=== PATIENT | male | born 1970 | race Caucasian/White ===

== ENCOUNTER 2016-09-11 17:06 | Emergency (ER) | payer SELFPAY ==
[2016-09-11 18:00] VITALS: BP 129/93
[2016-09-11] MEDS ORDERED: Take Home: Azithromycin 250 MG, 2 Tab Pack PO ONE (18:34)
--- NOTE | 2016-09-12 01:28 | ER ---
Date of Service: 09/11/2016 SUBJECTIVE: Kota presents to the emergency room with complaints of cough, body aches, and chest congestion. He is concerned as he has been working on renovating a trailer and came in contact with some black mold. He states that he has also been experiencing some myalgias, but denies any fever or chills. He states that he is also experiencing some mild sore throat and sinus congestion. PAST MEDICAL HISTORY: None. MEDICATIONS: None. ALLERGIES: NKDA. REVIEW OF SYSTEMS: Please see history of present illness. General: Denies any fever or chills. Does complain of mild generalized fatigue. HEENT: Complains of sore throat and congestion. Respiratory: Complains of mild cough. No significant respiratory distress or shortness of breath. Cardiac: Denies any substernal chest pain. No jaw, arm, neck, or back pain. GI: No nausea, vomiting, or diarrhea. No melena, hematochezia, or hematemesis. PHYSICAL EXAMINATION: General: This is a 45-year-old male patient, in no acute distress. Vital Signs: Blood pressure is 129/93, pulse rate is 100, temperature is 36.7, respiratory rate 12, O2 saturations 100%. Skin: Warm, pink, and dry. HEENT: Head is normocephalic, atraumatic. Eyes, PERRLA. Extraocular movements are intact. Ears, TMs are clear. Mouth, oral mucosa is moist. No erythema or exudate. No hypopharynx. Neck: Supple. No masses. There is no lymphadenopathy. Lungs: Clear to auscultation. Heart: Regular rate and rhythm. Abdomen: Soft and nontender. There is no hepatosplenomegaly noted. There is no masses noted. Extremities: Without edema. DIAGNOSTIC DATA: PA and lateral chest x-ray was obtained. It did have evidence of some increased hilar opacification consistent with bronchitis. Influenza A and B were obtained and were negative. WBCs are 6.9, hemoglobin is 14.4, platelets are 176. Rapid strep was performed and was negative. ASSESSMENT: Acute bronchitis. PLAN: The patient is started on azithromycin 500 mg x1 and 250 mg daily on days 2 through 5. Would like him to follow up in the clinic in the next 7-10 days, sooner if not gradually improving. All questions were answered. MWK: 09/11/2016 22:51:01 MODL: 09/12/2016 01:23:35 /[id number]
== END 2016-09-11 18:42 | disposition home or self-care (01) ==
LOC: VM.ED 17:06
DX: J20.9 Acute bronchitis, unspecified (principal)
CPT/HCPCS: 36415; 71020; 85025; 86140; 87081; 87804; 87880; 99283; A9270

== ENCOUNTER 2020-11-01 00:55 | Emergency (ER) | payer MEDICAID ==
[2020-11-01] MEDS ORDERED: Lidocaine 1% 30 ML SDV INJECT ONE (01:11)
[2020-11-01] MEDS ORDERED: Take Home: Acetaminophen/HYDROcodone 325-10 MG, 5 Tab Pack PO ONE (01:33)
[2020-11-01] MEDS ORDERED: Take Home: Amoxicillin 875 MG Tab, 2 Tab Pack PO ONE (01:33)
--- NOTE | 2020-11-01 01:54 | EDM.PDOC ---
ED HPI GENERAL MEDICAL PROBLEM - General Chief Complaint: Bite:Animal, Insect Stated Complaint: Dog bite Time Seen by Provider: 11/01/20 00:55 Source of Information: Reports: Patient History Limitations: Reports: No Limitations - History of Present Illness INITIAL COMMENTS - FREE TEXT/NARRATIVE: Pt. presents to ER with complaints of dog bite to R forearm. Pt. sustained a puncture wound to the volar portion of the R forearm and hematoma without skin break in the dorsal portion of the forearm. Pt. states that immediately after the bite, he noted significant hematoma formation to the area. His tetanus was updated in 2014. Pt. denies any numbness/tingling in the distal portion of the extremity. Denies any injury elsewhere. Onset: Today Location: Reports: Upper Extremity, Right Quality: Reports: Throbbing Severity: Severe - Related Data Allergies Allergy/AdvReac Type Severity Reaction Status Date / Time No Known Allergies Allergy Verified 09/11/16 17:24 Home Meds: Home Meds . [No Known Home Meds] 09/11/16 [History] Past Medical History - Past Health History Medical/Surgical History: Denies Medical/Surgical History ED ROS GENERAL - Review of Systems Review Of Systems: Comprehensive ROS is negative, except as noted in HPI. ED EXAM, GENERAL - Physical Exam Exam: See Below Exam Limited By: No Limitations General Appearance: Alert, WD/WN, No Apparent Distress Extremities: Other (approx. 1 cm puncture wound with surrounding devitilized tissue noted in volar portion of forearm. Hematoma noted surrounding the bite, particularly in the dorsal area. The hematomas are fluctuent. The skin is not taut. CMS intact. No paresthesia. Pt. complains of increased pain with flexion/extens) ED GENERAL MEDICAL PROCEDURES - Laceration/Wound Repair Right Arm Lac/wound length in cm: 1 Appearance: Subcutaneous, Muscle Distal NVT: Neuro & Vascular Intact, No Tendon Injury Anesthetic Type: Local Local Anesthesia - Lidocaine (Xylocaine): 1% Plain Local Anesthetic Volume: 5cc Skin Prep: Chlorhexidine (Hibiciens), Saline Saline irrigation (cc's): 1,000 Exploration/Debridement/Repair: Wound Explored, Extensive Debridement, Foreign Material Removed Closed with: Other (secondary intention) Course - Orders/Labs/Meds Meds: Medications Discontinued Medications Generic Name Dose Route Start Last Admin Trade Name Freq PRN Reason Stop Dose Admin Hydrocodone Bitart/Acetaminophen 1 packet 11/01/20 01:33 11/01/20 01:42 Take Home: Acetaminophen/Hydrocodone 325-10 Mg, 5 Tab Pack PO 11/01/20 01:34 1 packet ONETIME ONE Administration Amoxicillin 1 packet 11/01/20 01:33 11/01/20 01:42 Take Home: Amoxicillin 875 Mg Tab, 2 Tab Pack PO 11/01/20 01:34 1 packet ONETIME ONE Administration Lidocaine HCl 30 ml 11/01/20 01:11 11/01/20 01:44 Lidocaine 1% 30 Ml Sdv INJECT 11/01/20 01:12 30 ml ONETIME ONE Administration Departure - Departure Time of Disposition: 02:00 Disposition: Home, Self-Care 01 Clinical Impression: Dog bite - Discharge Information Instructions: Acetaminophen; Hydrocodone tablets or capsules, Animal Bite, Adult, [id number], Amoxicillin; Clavulanic Acid Tablets, Probiotics Forms: ED Department Discharge Additional Instructions: Augmentin 875mg 1 twice daily until gone [place] 10/325mg 1 every 4-6 hours as needed for pain Keep dressing and CLIFFORD wrap on. Keep arm above your heart to prevent throbbing Ice the area for 10 min every hour Change dressing daily. Return to ER of follow-up in clinic if you notice any redness, swelling or discharge from the area. - Problem List Review Problem List Initiated/Reviewed/Updated: Yes - Assessment/Plan Plan: Augmentin 875mg 1 twice daily until gone [place] 10/325mg 1 every 4-6 hours as needed for pain Keep dressing and CLIFFORD wrap on. Keep arm above your heart to prevent throbbing Ice the area for 10 min every hour Change dressing daily. Return to ER of follow-up in clinic if you notice any redness, swelling or discharge from the area.
[2020-11-01 02:03] VITALS: BP 144/95; PULSE 96
== END 2020-11-01 01:50 | disposition home or self-care (01) ==
LOC: VM.ED 00:55
DX: S51.851A Open bite of right forearm, initial encounter (principal); W54.0XXA Bitten by dog, initial encounter
CPT/HCPCS: 12001; 99283; 99283-25; A9270-GY

== ENCOUNTER 2021-01-15 22:22 | Emergency (ER) | payer MEDICAID ==
[2021-01-15] MEDS ORDERED: Glucagon,Human Recombinant 1 MG Vial IM ONE (22:26)
--- NOTE | 2021-01-15 23:07 | EDM.PDOC ---
ED HPI GENERAL MEDICAL PROBLEM - General Stated Complaint: FOOD LODGED IN THROAT Time Seen by Provider: 01/15/21 22:30 Source of Information: Reports: Patient History Limitations: Reports: No Limitations - History of Present Illness INITIAL COMMENTS - FREE TEXT/NARRATIVE: Pt. presents to ER with complaints of impacted esophagus. Pt. states that he has been unable to swallow and feels he has a piece of roast beef stuck in his lower esophagus. He states that he is unable to pass water and spits it up when he swallows any liquid. Pt. states that this happened around 9 PM. Pt. states that he is not experiencing any breathing trouble. He states that he has occasional problems when feeling food catching, but has never been able to pass it spontaneously. Onset: Today Onset Date: 01/15/21 Onset Time: 21:00 - Related Data Allergies Allergy/AdvReac Type Severity Reaction Status Date / Time No Known Allergies Allergy Verified 01/15/21 23:07 Home Meds: Home Meds . [No Known Home Meds] 09/11/16 [History] Past Medical History - Past Health History Medical/Surgical History: Denies Medical/Surgical History Social & Family History - Family History Family Medical History: No Pertinent Family History ED ROS GENERAL - Review of Systems Review Of Systems: Comprehensive ROS is negative, except as noted in HPI. ED EXAM, GENERAL - Physical Exam Exam: See Below General Appearance: Alert, WD/WN, No Apparent Distress Throat/Mouth: Normal Inspection, Normal Lips, Normal Teeth, No Airway Compromise Head: Atraumatic, Normocephalic Neck: Normal Inspection, Non-Tender Respiratory/Chest: No Respiratory Distress, Lungs Clear, Normal Breath Sounds, No Accessory Muscle Use, Chest Non-Tender Cardiovascular: Normal Peripheral Pulses, Regular Rate, Rhythm, No Edema, No Gallop, No JVD, No Murmur, No Rub Course - Vital Signs Last Recorded V/S: Last Vital Signs Temp 36.6 C 01/15/21 22:22 Pulse 85 01/15/21 22:22 Resp 16 01/15/21 22:22 BP 140/91 H 01/15/21 22:22 Pulse Ox 97 01/15/21 22:22 - Orders/Labs/Meds Meds: Medications Discontinued Medications Generic Name Dose Route Start Last Admin Trade Name Freq PRN Reason Stop Dose Admin Glucagon 1 mg 01/15/21 22:26 01/15/21 22:37 Glucagon,Human Recombinant 1 Mg Vial IM 01/15/21 22:27 1 mg ONETIME ONE Administration - Re-Assessments/Exams Free Text/Narrative Re-Assessment/Exam: 01/16/21 00:16 Pt. was given 1 mg glucagon at 2237. He was observed and instructed to sip on some coke. He did this with no success. Unable to pass the bolus. Departure - Departure Time of Disposition: 00:17 Disposition: DC/Tfer to [facility] 02 Clinical Impression: Food impaction of esophagus - Discharge Information Referrals: PCP,None [Primary Care Provider] - Forms: ED Department Discharge, Interfacility Transfer EVER Sepsis Event Note (ED) - Focused Exam Vital Signs: Vital Signs Temp Pulse Resp BP Pulse Ox 01/15/21 22:22 36.6 C 85 16 140/91 H 97 - Problem List Review Problem List Initiated/Reviewed/Updated: Yes - Assessment/Plan Plan: Both [facility] and [facility] were on diversion. Subsequently contacted [facility]. Pt. was accepted by Dr. Gomes for subsequent upper endoscopy. Pt. will be transported via private vehicle. His significant other will drive. Vitals stable at time of transfer. Pt. maintaining his own airway and had not breathing troubles at time of transfer.
[2021-01-16 00:19] VITALS: BP 123/81; PULSE 77
== END 2021-01-16 00:27 | disposition short-term general hospital (02) ==
LOC: VM.ED 22:22
DX: T18.128A Food in esophagus causing other injury, initial encounter (principal)
CPT/HCPCS: 96372; 99283; 99284; J1610

== ENCOUNTER 2023-03-28 02:15 | Emergency (ER) | payer OTHER, MEDICAID ==
[~2023-03-28 02:15] MED LIST: Sodium Chloride 0.9% 1,000 ML IV ONE
[2023-03-28] MEDS ORDERED: EPINEPHrine 1:10,000 1 MG/10 ML Syringe ONE ×3 (02:17→02:56)
== END 2023-03-28 02:25 | disposition expired ==
LOC: VM.ED 02:15
DX: S82.832B Other fracture of upper and lower end of left fibula, initial encounter for open fracture type I or II (principal); S82.302B Unspecified fracture of lower end of left tibia, initial encounter for open fracture type I or II; S01.81XA Laceration without foreign body of other part of head, initial encounter; S30.811A Abrasion of abdominal wall, initial encounter; S70.311A Abrasion, right thigh, initial encounter; S20.319A Abrasion of unspecified front wall of thorax, initial encounter; V57.5XXA Driver of pick-up truck or van injured in collision with fixed or stationary object in traffic accident, initial encounter; Y92.410 Unspecified street and highway as the place of occurrence of the external cause
CPT/HCPCS: 31500; 92950; 96374; 99284-25; J0171; J7030